=== PATIENT | female | born 1990 | race Caucasian/White ===

== ENCOUNTER 2017-03-18 11:02 | Emergency (ER) | payer OTHER ==
[2017-03-18 12:52] LABS: HEMOGLOBIN 12.6 gm/dl (12.3-15.3); RED BLOOD COUNT 4.22 M/UL (4.00-5.10)
[2017-03-18 13:11] LABS: BUN/CREATININE RATIO 25 (0-10)
[2017-03-19] MEDS ORDERED: NEURONTIN 300300 MG PO (16:45)
[2017-03-19] MEDS ORDERED: KLONOPIN1 MG PO (16:47)
== END 2017-03-18 15:45 | disposition home or self-care (01) ==
LOC: ER1 11:02
PROVIDERS: Physician Assistant
DX: K52.9 Noninfective gastroenteritis and colitis, unspecified (principal); N39.0 Urinary tract infection, site not specified; E86.0 Dehydration; R94.5 Abnormal results of liver function studies
CPT/HCPCS: 36415; 80053; 81001; 82150; 83690; 84703; 85025; 96361; 96374; 99284; J2405; J2550; J7050; Q9962

== ENCOUNTER 2017-03-19 03:23 | Observation (INO) | payer OTHER ==
[~2017-03-19] VITALS: Ht 170.2 cm; Wt 67.6 kg
[2017-03-19 07:28] LABS: HEMOGLOBIN 14.5 gm/dl (12.3-15.3); RED BLOOD COUNT 4.91 M/UL (4.00-5.10)
[2017-03-19 07:43] LABS: BUN/CREATININE RATIO 14 (0-10)
[2017-03-19] MEDS ORDERED: NEURONTIN 300300 MG PO (16:45)
[2017-03-19] MEDS ORDERED: KLONOPIN1 MG PO (16:47)
[2017-03-20 06:53] LABS: HEMOGLOBIN 12.9 gm/dl (12.3-15.3)
[2017-03-20 06:55] LABS: RED BLOOD COUNT 4.41 M/UL (4.00-5.10); WHITE BLOOD COUNT 7.4 K/UL (4.5-11.0)
[2017-03-20 07:29] LABS: BUN/CREATININE RATIO 10 (0-10)
[2017-03-21 06:03] LABS: HEMOGLOBIN 13.2 gm/dl (12.3-15.3); RED BLOOD COUNT 4.38 M/UL (4.00-5.10); WHITE BLOOD COUNT 6.9 K/UL (4.5-11.0)
[2017-03-21 06:15] LABS: BUN/CREATININE RATIO 15 (0-10)
[2017-03-21] MEDS ORDERED: COLACE100 MG PO (12:58)
[2017-03-21] MEDS ORDERED: PROTONIX40 MG PO (13:00)
== END 2017-03-21 14:33 | disposition home or self-care (01) ==
LOC: ER1 03:23 → ZEROF 12:30 → MED SURG 4 18:59
PROVIDERS: Student in an Organized Health Care Education/Training Program; ADMIT Internal Medicine
DX: E86.0 Dehydration (principal); E87.6 Hypokalemia; E87.2 Acidosis; R11.2 Nausea with vomiting, unspecified; Z90.49 Acquired absence of other specified parts of digestive tract
CPT/HCPCS: 36415; 70450; 80048; 80053; 81001; 83690; 83735; 84703; 85025; 85027; 87040; 87086; 96374; 96375; 96376; 99285; G0378; J0696; J1200; J2270; J2405; J2550; J2765; J7050